=== PATIENT | male | born 1940 | race Caucasian/White ===

== ENCOUNTER 2018-02-22 18:04 | Inpatient (IN) | payer MEDICARE, BC ==
[~2018-02-22] VITALS: Ht 165.1 cm; Wt 58.2 kg
--- NOTE | ~2018-02-22 | OP ---
PATIENT NAME: JOSÉ ROBLEDO MEDICAL RECORD: [id number] :42 LOCATION:D.M2 D.2121 ADMISSION DATE:02/22/18 SURGEON: RICHARD PEREYRA MD DATE OF OPERATION: 02/25/2018 PROCEDURES: 1. PTCA stent LAD. 2. PTCA LAD diagonal. 3. Selective coronary angiography. INDICATION: Non-Q-wave myocardial infarction. PROCEDURE IN DETAIL: After informed consent was obtained and after detailed explanation of risks, benefits as well as alternative therapies, the patient elected to proceed with angiogram and angioplasty. The right femoral area is prepped and draped in normal sterile fashion. The right femoral artery was cannulated via modified Seldinger technique with placement of 6-Romansh sheath. All catheters exchanged through this sheath. FINDINGS: The left anterior descending has 95% stenosis, the diagonal does as well. The LAD was addressed with a 2.75 x 30 mm Real stent. We ballooned the diagonal with a 1.5 and 2.0 balloon. Result was 0% residual throughout. OVERALL IMPRESSION: Successful NURSE LIAISON stent of the LAD going from 95% initial stenosis to 0% residual stenosis. TRANSINT:[id number] Voice Confirmation ID: [id number] DOCUMENT ID: [id number] RICHARD PEREYRA MD at 1630 CC: [id number] DICTATION DATE: 02/25/18822 COMEDIAN: 02/25/18 1039 DIS IN 02/25/18 [id number] [place] [address]
--- NOTE | ~2018-02-22 | HEMODYNAMI ---
PATIENT:JOSÉ ROBLEDO MEDICAL RECORD: [id number] : 42 LOCATION:[address] ADMISSION DATE: 02/22/18 Generatedon:02/23/20189:09 Patient name: JOSÉ ROBLEDO Patient #: [id number] SSN: : 1940 Date of study: 02/23/2018 Page: Of Hemodynamic Procedure Report Patient Data Patient Demographics Procedure consent was obtained First Name: JOSÉ Gender: Male Last Name: MEENA : 1940 Patient #: [id number] Age: 77 year(s) Race: Unknown Additional ID: [id number] Contact details Address: [address] State: [place] City: [place] Zip code: [address] Past Medical History Allergies: No known allergies Admission Admission Data Admission Date: 02/22/2018 Admission Time: 19:18 Room #: 2121 Procedure Procedure Types Cath Procedure Diagnostic Procedure LHC LHC w/Coronaries PCI Procedure Coronary Stent Coronary Stent Initial Procedure Description Procedure Date Procedure Date: 02/23/2018 Procedure Start Time: 8:46 Procedure End Time: 9:06 Procedure Staff Name Function Marilia Walsh RT Monitor Ludivina Antonio RN Nurse Mariano Ross MD Performing Physician Tab Cloud RT Scrub Procedure Data Cath Procedure Fluoroscopy Diagnostic fluoroscopy Total fluoroscopy Time: 4.6 time: 4.6 min min Diagnostic fluoroscopy Total fluoroscopy dose: 365 dose: 365 mGy mGy Contrast Material Contrast Material Type Amount (ml) Isovue 300 87 Entry Location Entry Primary Successful Side Size Upsize Upsize Entry Closure Martinez ccessful Closure Location (Fr) 1 (Fr) 2 (Fr) Remarks Device Remarks Radial Right 6 Fr Mechanical artery Short Compression Estimated blood loss: 10 ml Diagnostic catheters Device Type Used For End Catheter Placement DIAGNOSTIC Vado 110cm 5 LV Angiography Fr catheter ([id number]) DIAGNOSTIC Vado 110cm 5 Left Coronary Fr catheter ([id number]) Angiography DIAGNOSTIC Vado 110cm 5 Right Coronary Fr catheter ([id number]) Angiography Procedure Complications No complications Procedure Medications Medication Administration Route Dosage Oxygen NC 2 l/min Lidocaine 2% added to field 20 Heparin Flush Bag added to field 2 bags (1000units/500ml NS) 0.9% NaCl I.V. 100 ml/hr Radial Cocktail I.A. 1 syringe (Verapomil 2mg/Nitro 400mcg/Heparin 1500units) Versed I.V. 1 mg Fentanyl I.V. 50 mcg Heparin Bolus I.V. 4000 units Versed I.V. 1 mg Fentanyl I.V. 50 mcg Plavix P.O. 75 mg Hemodynamics Rest Heart Rate: 60 (bpm) Snapshots Pre Cath Intra NCS Post Cath Vital Signs Time Heart Resp SPO2 etCO2 NIBP (mmHg) Rhythm Pain Sedation Rate (ipm) (%) (mmHg) Status Level (bpm) 8:36:41 47 15 100 31.5 155/73(120) NSR 0 (11) 10(A) , No pain 8:41:28 51 16 100 32.3 144/69(112) NSR 0 (11) 10(A) , No pain 8:46:39 47 15 100 17.2 131/65(93) NSR 0 (11) 10(A) , No pain 8:51:18 59 14 98 34.5 118/60(82) NSR 0 (11) 10(A) , No pain 8:55:58 54 16 97 0 103/48(70) NSR 0 (11) 9(A) , No pain 9:00:35 53 18 98 39.8 110/57(81) NSR 0 (11) 10(A) , No pain 9:05:34 51 16 30.8 Measuring NSR 0 (11) 10(A) , No pain 9:05:48 52 16 98 31.6 110/55(83) NSR 0 (11) 10(A) , No pain Medications Time Medication Route Dose Verified Delivered Reason Notes Effectiveness by by 8:35:12 Oxygen NC 2 l/min Mariano Florence used for Cody Antonio de icer finisher 8:35:18 Lidocaine 2% added 20ml Mariano Quintana for local to vial Cody Ross MD anesthetic field 8:35:29 Heparin Flush added 2 bags Mariano Quintana used for Bag to Cody Ross MD procedure (1000units/500ml field NS) 8:35:38 0.9% NaCl I.V. 100 Mariano Florence Per physician ml/hr Cody Antonio RN 8:48:11 Radial Cocktail I.A. 1 Mariano Quintana for (Verapomil syringe Cody Ross MD vasodilation 2mg/Nitro 400mcg/Hepari 8:48:25 Versed I.V. 1 mg Mariano Florence for sedation Cody Antonio RN 8:48:30 Fentanyl I.V. 50 mcg Mariano Florence for sedation Cody Antonio RN 8:52:45 Heparin Bolus I.V. 4000 Mariano Florence for verif ied units Cody Antonio RN anticoagulation with dr ross 8:55:03 Versed I.V. 1 mg Mariano Florence for sedation Cody Antonio RN 8:55:07 Fentanyl I.V. 50 mcg Mariano Florence for sedation Cody Antonio RN 9:03:23 Plavix P.O. 75 mg Mariano Florence for Cody Antonio RN antiplatelet therapy Procedure Log Time Note 8:19:12 Marilia Counts RT(R) sent for patient. Start room use. 8:19:13 Time tracking: Regular hours (M-F 7:00 - 5:00) 8:19:16 Plan of Care:Hemodynamics will remain stable., Cardiac rhythm will remain stable., Comfort level will be maintained., Respiratory function will remain adequate., Patient/ family verbilizes understanding of procedure., Procedure tolerated without complication., Recovers from procedure without complications.. 8:27:41 Patient received from Med II to CCL 1 Alert and oriented. Tansferred to table in Supine position. 8:27:42 Warm blankets applied, and eddie hugger turned on for patient comfort. 8:27:43 Correct patient and procedure confirmed by team. 8:27:44 Pre-op teaching completed and patient verbalized understanding. 8:27:44 Pre-procedure instructions explained to patient. 8:35:12 Oxygen 2 l/min NC was administered by Ludivina Antonio RN; used for procedure; 8:35:18 Lidocaine 2% 20ml vial added to field was administered by Mariano Ross MD; for local anesthetic; 8:35:29 Heparin Flush Bag (1000units/500ml NS) 2 bags added to field was administered by Mariano Ross MD; used for procedure; 8:35:38 0.9% NaCl 100 ml/hr I.V. was administered by Ludivina Antonio RN; Per physician; 8:35:41 Vital chart was started 8:39:08 Signed procedure consent form obtained from patient. 8:39:09 ECG and BP/O2 sat monitors applied to patient. 8:39:15 Rhythm: sinus bradycardia 8:39:17 Full Disclosure recording started 8:40:19 H&P Date Dictated: 02/23/2018 New H&P dictated by physician.. 8:40:22 Family in patients room. 8:40:24 Patient NPO since Midnight. 8:40:31 Patient allergic to No known allergies 8:40:33 Is the patient allergic to Iodine/contrast media? No. 8:40:35 Is patient on blood thinner?Yes 8:40:38 ACC The patient was administered the following blood thiners within the last 24 hours: ACCPlavix 8:40:40 Patient diabetic? No. 8:41:07 Previous problem with sedation/anesthesia? No ? 8:41:08 Snore? Yes 8:41:09 Sleep apnea? No 8:41:10 Deviated septum? No 8:41:11 Opens mouth fully? Yes 8:41:12 Sticks out tongue? Yes 8:41:14 Airway obstruction? No ? 8:41:19 Dentures? Yes IN TIGHT 8:41:23 Pre procedure: right dorsailis pedis pulse 2+ Normal; easily identifiable; not easily obliterated 8:41:25 Modified Mckay's test Ulnar < 7 seconds 8:41:27 Patient pain scale 0/10 ?. 8:41:36 IV patent on arrival in right forearm with 0.9% NaCl at O. 8:41:39 Lab results completed and on chart. 8:41:43 Right Radial & Right Groin area was prepped with chlora-prep and draped in sterile fashion 8:41:44 Sharps counted by scrub and verified by R.N. 8:41:44 Alarms reviewed by R. N. 8:41:48 Use device set Radial Dx or PCI 8:41:49 Medline Cath Pack ([id number]) opened to sterile field. 8:41:49 ACIST Syringe (79945) opened to sterile field. 8:41:50 DIAGNOSTIC WIRE .035 260cm J wire (167714) opened to sterile field. 8:41:50 Bag Decanter (2001S) opened to sterile field. 8:41:51 ACIST Manifold (03260) opened to sterile field. 8:41:51 ACIST Hand Control (17613) opened to sterile field. 8:41:52 MBrace Wrist Support ([id number]) opened to sterile field. 8:41:52 Tegaderm 4 x 4 (1626W) opened to sterile field. 8:41:54 SHEATH 6Fr Prelude Radial ([id number]) opened to sterile field. 8:43:39 Physician paged 8:43:45 Zero performed for pressure channel P1 8:43:49 Final Timeout: patient, procedure, and site verified with staff and physician. All members of the team are in agreement. 8:43:53 Right Radial site verified by team. 8:43:56 Physical assessment completed. ASA score P 2 - A patient with mild systemic disease as per Mariano Ross MD. 8:43:59 Sedation plan: IV Moderate Sedation Medication:Versed, Fentanyl 8:44:06 Baseline sample Acquired. 8:46:07 Procedure started. 8:46:13 Local anesthetic to right radial artery with Lidocaine 2% by Mariano Ross MD.INITIAL ACCESS ONLY 8:47:25 A 6 Fr Short sheath was inserted into the Right Radial artery 8:48:11 Radial Cocktail (Verapomil 2mg/Nitro 400mcg/Heparin 1500units) 1 syringe I.A. was administered by Mariano Ross MD; for vasodilation; 8:48:25 Versed 1 mg I.V. was administered by Ludivina Antonio RN; for sedation; 8:48:30 Fentanyl 50 mcg I.V. was administered by Ludivina Antonio RN; for sedation; 8:49:15 A DIAGNOSTIC Vado 110cm 5 Fr catheter (484475) was advanced over the wire and used for LV Angiography. 8:49:58 LV gram done using CHEN 8:49:59 LV hemodynamics recorded. 8:50:01 Injector settings: Ml/sec: 5, Volume: 15, 8:50:25 A DIAGNOSTIC Vado 110cm 5 Fr catheter (552307) was advanced over the wire and used for Left Coronary Angiography. 8:51:19 A DIAGNOSTIC Vado 110cm 5 Fr catheter (420628) was advanced over the wire and used for Right Coronary Angiography. 8:51:37 Catheter removed. 8:51:42 Use device set CODY PCI 8:51:45 INFLATOR Merit Candiek (DE2195) opened to sterile field. 8:51:48 CHOICE PT Extra Support 182cm wire ([id number]) opened to sterile field. 8:52:45 Heparin Bolus 4000 units I.V. was administered by Ludivina Antonio RN; for anticoagulation; verified with dr ross 8:53:25 GUIDE 6FR AR 1.0 catheter ([id number]) opened to sterile field. 8:53:37 6 Fr AR 1.0 guide catheter was inserted over the wire 8:54:56 CHOICE PT ES wire advanced. 8:55:03 Versed 1 mg I.V. was administered by Ludivina Antonio RN; for sedation; 8:55:06 Inflate balloon Inflation number: 1 A EUPHORA 3.0 x 20 Balloon ([id number]) was prepped and advanced across the Prox RCA, then inflated to 13 INGRID for 0:07 (min:sec). 8:55:07 Fentanyl 50 mcg I.V. was administered by Ludivina Antonio RN; for sedation; 8:55:25 Balloon removed over the wire. 8:57:04 Place stent Inflation Number: 2 A ANGEL RX 3.5 x 38 stent ([id number]) was prepped and advanced across the Prox RCA. The stent was deployed at 11 INGRID for 0:07 (min:sec). 8:57:40 Stent catheter was removed intact over wire. 8:59:59 Place stent Inflation Number: 3 A ANGEL RX 3.0 x 18 stent ([id number]) was prepped and advanced across the Prox RCA. The stent was deployed at 13 INGRID for 0:10 (min:sec). 9:00:02 Stent catheter was removed intact over wire. 9:00:03 Wire removed. 9:00:04 Guide catheter removed. 9:00:12 Sheath removed intact; hemostasis achieved with Mechanical Compression to the Right Radial artery. 9:00:14 Procedure ended.(Physican Out) 9:00:30 Fluoroscopy time 04.60 minutes. 9:00:34 Fluoroscopy dose: 365 mGy 9:00:34 Flurop Dose total: 365 9:00:43 Contrast amount:Isovue 300 87ml. 9:00:44 Sharps counted by scrub and verified by R.N. 9:00:47 TR band inflated with 10cc of air. 9:00:48 Insertion/operative site no bleeding no hematoma. 9:00:54 Post right radial artery:stable, clean and dry 9:00:56 Post Procedure Pulses reassessed and unchanged 9:00:58 Post-procedure physical assessment completed. ASA score P 2 - A patient with mild systemic disease as per Mariano Ross MD. 9:01:01 Post procedure rhythm: unchanged. 9:01:39 Estimated blood loss: 10 ml 9:01:41 Post procedure instruction explained to patient.Patient verbalizes understanding. 9:01:44 Patient needs reinforcement of post procedure teaching. 9:02:07 Procedure type changed to Cath procedure, Diagnostic procedure, LHC, LHC w/Coronaries, PCI procedure, Coronary Stent, Coronary Stent Initial 9:02:13 Procedure Complication : No complications 9:02:16 See physician's report for complete and final results. 9:02:28 TR BAND Standard ([id number]) opened to sterile field. 9:03:23 Plavix 75 mg P.O. was administered by Ludivina Antonio RN; for antiplatelet therapy; 9:03:37 Procedure and supply charges have been captured, reviewed, submitted and are correct. 9:05:54 Vital chart was stopped 9:05:56 Report given to PCU. 9:06:00 Patient transfered to PCU with Bed. 9:06:08 Full Disclosure recording stopped 9:06:08 Procedure ended. 9:06:11 End room use (Document Last) Intervention Summary Intervention Notes Time ActionType Lesion and Equipment Used Action# Pressure Duration Attributes 8:55:06 Inflate Prox RCA EUPHORA 3.0 x 1 13 00:07 balloon 20 Balloon ([id number]) 8:57:04 Place stent Prox RCA ANGEL RX 3.5 x 2 11 00:07 38 stent ([id number]) 8:59:59 Place stent Prox RCA ANGEL RX 3.0 x 3 13 00:10 18 stent ([id number]) Device Usage Item Name Manufacture Quantity Catalog Number Hospital Part Current Minimal Lot# / Charge Number Stock Stock Serial# Code ACIST Syringe Acist 1 65173 254008 333173 108691 20 (53920) Medical Systems Inc Medline Cath Cardinal 1 [id number] 024500 32126 449235 5 Pack Health ([id number]) Bag Decanter Microtek 1 2001S 621962 45896 857175 5 (2001S) Medical Inc. DIAGNOSTIC WIRE St Evangelista 1 811273 517401 330780 737250 30 .035 260cm J wire (757080) ACIST Hand Acist 1 46748 109771 140538 049922 5 Control (58441) [employer] Systems Inc ACIST Manifold Acist 1 94884 347620 952144 191360 5 (35910) Medical Systems Inc Tegaderm 4 x 4 3M 1 1626W 279595 949164 666586 5 (1626W) MBrace Wrist Advanced 1 140-0250-00 359612 05573 463970 5 Support Vascular ([id number]) Dynamics SHEATH 6Fr Merit 1 [id number] 400886 365647 874884 5 Prelude Radial Medical ([id number]) DIAGNOSTIC Terumo 1 40-1933 254044 459410 446354 5 Vado 110cm 5 Fr catheter (689740) INFLATOR Merit Merit 1 QC9530 824038 739567 766682 15 [employer] (AI0305) CHOICE PT Extra Lenox 1 [id number] 474464 985164 536922 5 Support 182cm Scientific wire ([id number]) GUIDE 6FR AR Medtronic 1 [id number] 400885 95921 573312 1 1.0 catheter ([id number]) EUPHORA 3.0 x Medtronic 1 [id number] 529548 876988 036273 5 [id number] 20 Balloon (TXV0074N) ANGEL RX 3.5 x Medtronic 1 [id number] 326415 5299490 557176 5 [id number] 38 stent ([id number]) ANGEL RX 3.0 x Medtronic 1 [id number] 917567 3845669 434565 5 [id number] 18 stent ([id number]) TR BAND Terumo 1 [id number] 722037 725930 877494 40 Standard ([id number]) Signature Audit [place] Stage Time Signature Unsigned Intra-Procedure 02/23/2018 Marilia Capellan Counts 9:06:22 AM Counts RT(R) RT(R) 02/23/2018 9:08:04 AM Intra-Procedure 02/23/2018 Marilia 9:09:09 AM Counts RT(R) Signatures Monitor : Marilia Signature : Counts RT Date : Time : [place] [address] [facility]
--- NOTE | ~2018-02-22 | HP ---
PATIENT: JOSÉ ROBLEDO MEDICAL RECORD: [id number] ACCOUNT: [id number] LOCATION:[address] : 41 ADMISSION DATE: 02/22/18 HISTORY AND PHYSICAL EXAMINATION DIAGNOSES: 1. Non-Q-wave myocardial infarction. 2. Coronary artery disease. 3. Hypertension. 4. Prostate cancer. HISTORY OF PRESENT ILLNESS: This is a gentleman who has no previous cardiac history began having chest pain yesterday, presented to [facility], was found to have a non-Q-wave myocardial infarction. PHYSICAL EXAMINATION: GENERAL APPEARANCE: Well-nourished, well-developed, appears stated age. Level of distress, comfortable. PSYCHIATRIC: Mental status, alert, normal affect. Orientation, oriented to time, place and person. EYES: Lids and conjunctiva, noninjected. No discharge, no pallor. ENT: Lips, teeth, gums, normal dentition. Oropharynx, no cyanosis, no pallor. NECK: Carotid arteries, bilateral normal upstroke, no bruits, no thrills. JUGULAR VEINS: No jugular venous pressure or distention. CERVICAL LYMPH NODES: Nontender, nonenlarged. THYROID: Not enlarged. Nontender. No nodules. LUNGS: Respiratory effort, unlabored. CHEST: Normal curvature. No thoracic deformity. No chest wall tenderness. Percussion, resonant. Auscultation, clear. No wheezes, no rales, no rhonchi. CARDIOVASCULAR: Precordial exam, nondisplaced. No heaves or pericardial thrills. Rate and rhythm, regular. Heart sounds, normal S1, normal S2. No S3, no gallop, no rub. Systolic murmur, not heard. Diastolic murmur, not heard. EXTREMITIES: No cyanosis, no edema. Peripheral pulses, full and equal in all extremities, except as noted. No bruits appreciated. ABDOMEN: Soft, nondistended. Normal aorta. No bruit. Nontender. No masses. Liver, nontender, no hepatomegaly. Spleen, nontender, no splenomegaly. MUSCULOSKELETAL: No joint tenderness. No joint swelling. No erythema. NEUROLOGICAL: Normal gait, normal strength, normal tone. SKIN: Warm and dry. REVIEW OF SYSTEMS: The patient reports easy bruising but reports no swollen glands. The patient reports no fever, no night sweats, no significant weight gain, no significant weight loss. No significant exercise tolerance. The patient reports no dry eyes, no irritation, no vision change. Patient reports no difficulty hearing and no ear pain. Patient reports no frequent nose bleeds or nose and sinus problems. Patient reports on arm pain on exertion. No shortness of breath while lying down. No history of heart murmur. Patient reports no cough, no wheezing or coughing up blood. Patient reports no abdominal pain, no vomiting. Normal appetite. No diarrhea and not vomiting blood. No nausea and no constipation. Patient reports no incontinence. No difficulty urinating. No hematuria. No increased frequency. Patient reports no muscle aches. No weakness, no arthralgias, no back pain. No swelling of the extremities. Patient reports no abnormal mole, no jaundice, no rashes. Reports no loss of consciousness. No weakness and no numbness. No seizures, dizziness, or headaches. The patient reports no depression, no sleep disturbance, feeling HISTORY AND PHYSICAL [id number] FRACHISEUR,JOSÉ safe in a relationship and no alcohol abuse. Patient reports on fatigue. Reports no runny nose or sinus pressure. No itching, no hives, and no frequent sneezing. OVERALL IMPRESSION: Non-Q-wave myocardial infarction, grossly abnormal ECG with T-wave inversions anteriorly. We will proceed with coronary angiography. Further care depends upon findings of the angiography. TRANSINT:[id number] Voice Confirmation ID: [id number] DOCUMENT ID: [id number] RICHARD PEREYRA MD at 0820 CC: [id number] DICTATION DATE: 02/23/18 0749 DRAWER UPFITTER: 02/23/18 [address] [place] [address]
--- NOTE | ~2018-02-22 | OP ---
PATIENT NAME: JOSÉ ROBLEDO MEDICAL RECORD: [id number] :42 LOCATION:D.M2 D.2121 ADMISSION DATE:02/22/18 SURGEON: RICHARD PEREYRA MD DATE OF OPERATION: 02/23/2018 PROCEDURES: 1. PTCA stent RCA. 2. Left heart catheterization. 3. Selective coronary angiography. 4. Left ventriculogram. INDICATION: Angina, coronary artery disease, non-Q-wave myocardial infarction. DESCRIPTION OF PROCEDURE: After informed consent was obtained and after a detailed description of risks, benefits as well as alternative therapies, the patient elected to proceed with angiogram and angioplasty. The right radial area was prepped and draped in normal sterile fashion. Right radial artery was cannulated via modified Seldinger technique with placement of 6-Libyan sheath. All catheters exchanged through this sheath. FINDINGS: The left ventriculogram was performed in standard 30-degree CHEN view, reveals preserved cardiac wall motion, ejection fraction 50%. SELECTIVE CORONARY ANGIOGRAPHY: 1. Left main is with no significant angiographic disease. 2. Left anterior descending has 95% stenosis proximally. This entails the LAD and the LAD diagonal. 3. Left circumflex has 90% stenosis in the mid vessel. 4. Right coronary artery has 99% stenosis throughout the mid vessel. PTCA STENT OF THE RIGHT CORONARY ARTERY: Stents used were 3.5 x 38 and 3.0 x 18 both Anderson stents. Result was 0% residual stenosis. OVERALL IMPRESSION: Successful PTCA stent of the RCA going from 99% initial stenosis to 0% residual. PLAN: For PTCA stent of the LAD and circumflex in the near future. TRANSINT:[id number] Voice Confirmation ID: [id number] DOCUMENT ID: [id number] RICHARD PEREYRA MD at 1630 CC: [id number] DICTATION DATE: 02/23/18 09 FLOOR COVERER APPRENTICE: 02/23/18 1155 DIS IN 02/25/18 [facility] [address] [id number]
--- NOTE | ~2018-02-22 | HEMODYNAMI ---
PATIENT:JOSÉ ROBLEDO MEDICAL RECORD: [id number] : 42 LOCATION:[facility] D.2121 ADMISSION DATE: 02/22/18 Generatedon:02/25/20188:23 Patient name: JOSÉ ROBLEDO Patient #: [id number] SSN: : 1940 Date of study: 02/25/2018 Page: Of Hemodynamic Procedure Report Patient Data Patient Demographics Procedure consent was obtained First Name: JOSÉ Gender: Male Last Name: MEENA : 1940 Patient #: [id number] Age: 77 year(s) Race: Unknown Additional ID: [id number] Contact details Address: [address] State: [place] City: [place] Zip code: [address] Past Medical History Allergies: No known allergies Admission Admission Data Admission Date: 02/22/2018 Admission Time: 19:18 Room #: 2121 Procedure Procedure Types Cath Procedure PCI Procedure Coronary Stent Coronary Stent Initial PTCA PTCA Additional Procedure Description Procedure Date Procedure Date: 02/25/2018 Procedure Start Time: 8:00 Procedure End Time: 8:23 Procedure Staff Name Function Mariano Ross MD Performing Physician Dexter Coleman RT Monitor Shilpi Blank RT Scrub Ludivina Antonio RN Nurse Procedure Data Cath Procedure Fluoroscopy Diagnostic fluoroscopy Total fluoroscopy Time: 7.7 time: 7.7 min min Diagnostic fluoroscopy Total fluoroscopy dose: 298 dose: 298 mGy mGy Contrast Material Contrast Material Type Amount (ml) Isovue 300 77 Entry Location Entry Primary Successful Side Size Upsize Upsize Entry Closure Succes sful Closure Location (Fr) 1 (Fr) 2 (Fr) Remarks Device Remarks Femoral Right 6 Fr Exoseal artery Short Estimated blood loss: 10 ml Procedure Complications No complications Procedure Medications Medication Administration Route Dosage Oxygen NC 2 l/min Lidocaine 2% added to field 20 Heparin Flush Bag added to field 2 bags (1000units/500ml NS) 0.9% NaCl I.V. 100 ml/hr Versed I.V. 1 mg Fentanyl I.V. 50 mcg Heparin Bolus I.V. 4000 units Versed I.V. 1 mg Fentanyl I.V. 50 mcg Radial Cocktail added to field 1 syringe (Verapomil 2mg/Nitro 400mcg/Heparin 1500units) Versed I.V. 1 mg Hemodynamics Rest Heart Rate: 51 (bpm) Pressure Samples Time Site Value (mmHg) Purpose Heart Use Rate(bpm) 8:08 AO 97/76(87) Snapshot 69 Snapshots Pre Cath Intra NCS Post Cath Vital Signs Time Heart Resp SPO2 etCO2 NIBP (mmHg) Rhythm Pain Sedation Rate (ipm) (%) (mmHg) Status Level (bpm) 7:44:29 47 23 98 0 149/70(111) NSR 0 (11) 10(A) , No pain 7:50:11 46 18 99 21.8 135/66(99) NSR 0 (11) 10(A) , No pain 7:55:41 42 16 95 0 116/62(92) NSR 0 (11) 10(A) , No pain 8:00:58 45 15 96 0 114/51(87) NSR 0 (11) 10(A) , No pain 8:05:35 48 17 98 0 116/59(86) NSR 0 (11) 9(A) , No pain 8:10:34 68 25 99 33.1 Measuring NSR 0 (11) 9(A) , No pain 8:14:01 54 13 96 0 126/64(95) NSR 0 (11) 9(A) , No pain 8:22:19 48 16 97 25.6 111/56(84) NSR 0 (11) 10(A) , No pain Medications Time Medication Route Dose Verified Delivered Reason Notes Effectiveness by by 7:56:15 Oxygen NC 2 l/min Mariano Bedoyaie used for Cody Antonio RN procedure 7:56:23 Lidocaine 2% added 20ml Mariano Quintana for local to vial Cody Ross MD anesthetic field 7:56:31 Heparin Flush added 2 bags Mariano Florence used for Bag to Cody Antonio RN procedure (1000units/500ml field NS) 7:56:40 0.9% NaCl I.V. 100 Mariano Florence Per physician ml/hr Cody Antonio RN 7:56:57 Radial Cocktail added 1 Mariano Florence for waste d. (Verapomil to syringe Cody Antonio RN vasodilation 2mg/Nitro field 400mcg/Heparin 1500units) 7:59:10 Versed I.V. 1 mg Marianoholden Bedoyaie for sedation Cody Antonio RN 7:59:15 Fentanyl I.V. 50 mcg Mariano Bedoyaie for sedation Cody Antonio RN 8:02:04 Heparin Bolus I.V. 4000 Mariano Florence for verif ied units Cody Antonio RN anticoagulation with dr ross 8:04:50 Versed I.V. 1 mg Mariano Bedoyaie for sedation Cody Antonio RN 8:04:53 Fentanyl I.V. 50 mcg Mariano Florence for sedation Cody Antonio RN 8:13:34 Versed I.V. 1 mg Mariano Buffie for sedation Cody Antonio RN Procedure Log Time Note 7:15:01 Shilpi Blank RT(R) sent for patient. Start room use. 7:18:37 Time tracking: Regular hours (M-F 7:00 - 5:00) 7:18:41 Plan of Care:Hemodynamics will remain stable., Cardiac rhythm will remain stable., Comfort level will be maintained., Respiratory function will remain adequate., Patient/ family verbilizes understanding of procedure., Procedure tolerated without complication., Recovers from procedure without complications.. 7:18:43 Signed procedure consent form obtained from patient. 7:22:09 H&P Date Dictated: 02/22/2018 Within 30 days and on chart.. 7:34:35 Patient received from PCU to CCL 1 Alert and oriented. Tansferred to table in Supine position. 7:34:36 Warm blankets applied, and eddie hugger turned on for patient comfort. 7:34:37 Correct patient and procedure confirmed by team. 7:34:37 ECG and BP/O2 sat monitors applied to patient. 7:34:38 Full Disclosure recording started 7:43:28 Vital chart was started 7:46:19 Baseline sample Acquired. 7:46:29 Rhythm: sinus bradycardia 7:46:33 Pre-procedure instructions explained to patient. 7:46:33 Pre-op teaching completed and patient verbalized understanding. 7:46:35 Family in patients room. 7:46:36 Patient NPO since Midnight. 7:46:45 Is the patient allergic to Iodine/contrast media? No. 7:46:55 Is patient on blood thinner?Yes 7:46:58 ACC The patient was administered the following blood thiners within the last 24 hours: ACCPlavix 7:46:59 Patient diabetic? No. 7:47:02 Previous problem with sedation/anesthesia? No ? 7:47:03 Snore? Yes 7:47:04 Sleep apnea? No 7:47:06 Deviated septum? No 7:47:06 Opens mouth fully? Yes 7:47:07 Sticks out tongue? Yes 7:47:15 Airway obstruction? No ? 7:47:19 Dentures? Yes IN 7:48:00 Pre procedure: right dorsailis pedis pulse 1+ Palpable, but thready & weak; easily obliterated 7:48:04 Modified Mckay's test Ulnar < 7 seconds 7:48:06 Patient pain scale 0/10 ?. 7:48:10 IV patent on arrival in right antecubital with 0.9% NaCl at O. 7:48:13 Lab results completed and on chart. 7:48:17 Right Radial & Right Groin area was prepped with chlora-prep and draped in sterile fashion 7:48:18 Alarms reviewed by RSelin N. 7:48:18 Sharps counted by scrub and verified by R.N. 7:48:21 Physician paged 7:48:24 Use device set Radial Dx or PCI 7:48:29 Use device set TAUTH PCI 7:48:34 Tegaderm 4 x 4 (1626W) opened to sterile field. 7:48:35 ACIST Hand Control (99779) opened to sterile field. 7:48:36 ACIST Manifold (77620) opened to sterile field. 7:48:38 ACIST Syringe (41448) opened to sterile field. 7:48:39 Medline Cath Pack ([id number]) opened to sterile field. 7:48:39 Bag Decanter () opened to sterile field. 7:48:39 DIAGNOSTIC WIRE .035 260cm J wire (988191) opened to sterile field. 7:48:40 MBrace Wrist Support ([id number]) opened to sterile field. 7:48:45 INFLATOR Merit BasixCompak (ZT0041) opened to sterile field. 7:48:48 CHOICE PT Extra Support 182cm wire ([id number]) opened to sterile field. 7:51:34 IV Extension Set opened to sterile field. 7:56:15 Oxygen 2 l/min NC was administered by Ludivina Antonio RN; used for procedure; 7:56:23 Lidocaine 2% 20ml vial added to field was administered by Mariano Ross MD; for local anesthetic; 7:56:31 Heparin Flush Bag (1000units/500ml NS) 2 bags added to field was administered by Ludivina Antonio RN; used for procedure; 7:56:40 0.9% NaCl 100 ml/hr I.V. was administered by Ludivina Antonio RN; Per physician; 7:56:57 Radial Cocktail (Verapomil 2mg/Nitro 400mcg/Heparin 1500units) 1 syringe added to field was administered by Ludivina Antonio RN; for vasodilation; wasted. 7:57:58 --------ALL STOP TIME OUT------ 7:57:58 Final Timeout: patient, procedure, and site verified with staff and physician. All members of the team are in agreement. 7:58:04 Right Radial & Right Groin site verified by team. 7:58:07 Physical assessment completed. ASA score P 2 - A patient with mild systemic disease as per Mariano Ross MD. 7:58:15 Sedation plan: IV Moderate Sedation Medication:Versed, Fentanyl 7:58:24 SHEATH Prelude 6Fr 0.035 (CVH-4U-02-035) opened to sterile field. 7:59:09 Zero performed for pressure channel P1 7:59:10 Versed 1 mg I.V. was administered by Ludivina Antonio RN; for sedation; 7:59:15 Fentanyl 50 mcg I.V. was administered by Ludivina Antonio RN; for sedation; 7:59:41 GUIDE 6FR XBLAD 3.5 catheter ([id number]) opened to sterile field. 8:00:07 Procedure started. 8:00:11 Local anesthetic to right femoral artery with Lidocaine 2% by Mariano Ross MD.INITIAL ACCESS ONLY 8:00:34 A 6 Fr Short sheath was inserted into the Right Femoral artery 8:00:50 6 Fr XBLAD 3.5 guide catheter was inserted over the wire 8:00:58 Guide Catheter removed. unable to cannulate vessel. 8:01:01 GUIDE 6FR XBLAD 4.0 catheter ([id number]) opened to sterile field. 8:01:10 6 Fr XBLAD 4 guide catheter was inserted over the wire 8:02:04 Heparin Bolus 4000 units I.V. was administered by Ludivina Antonio RN; for anticoagulation; verified with dr ross 8:02:12 Choice PT XS wire advanced. 8:04:06 Wire advanced across lesion. 8:04:50 Versed 1 mg I.V. was administered by Ludivina Antonio RN; for sedation; 8:04:53 Fentanyl 50 mcg I.V. was administered by Ludivina Antonio RN; for sedation; 8:05:53 Place stent Inflation Number: 1 A ANGEL RX 2.75 x 30 stent ([id number]) was prepped and advanced across the Prox LAD. The stent was deployed at 17 INGRID for 0:10 (min:sec). 8:07:42 Stent catheter was removed intact over wire. 8:08:54 Wire redirected to DIAG. 8:10:51 Inflate balloon Inflation number: 1 A EUPHORA 1.5 x 10 Balloon ([id number]) was prepped and advanced across the 1st Diag, then inflated to 17 INGRID for 0:10 (min:sec). 8:11:07 Multiple inflations made at 17 Atms. 8:11:40 Balloon removed over the wire. 8:13:04 Inflate balloon Inflation number: 2 A EUPHORA 2.0 x 10 Balloon ([id number]) was prepped and advanced across the 1st Diag, then inflated to 13 INGRID for 0:30 (min:sec). 8:13:34 Versed 1 mg I.V. was administered by Ludivina Antonio RN; for sedation; 8:14:10 Mutiple inflations made at 10 Atms. 8:14:12 Balloon removed over the wire. 8:14:13 Wire removed. 8:14:14 Guide catheter removed. 8:14:22 EXOSEAL 6Fr (EX600) opened to sterile field. 8:14:53 Sheath removed intact; hemostasis achieved with Exoseal to the Right Femoral artery. 8:14:55 Procedure ended.(Physican Out) 8:15:11 Fluoroscopy time 07.70 minutes. 8:15:15 Fluoroscopy dose: 298 mGy 8:15:15 Flurop Dose total: 298 8:15:18 Contrast amount:Isovue 300 77ml. 8:15:20 Sharps counted by scrub and verified by R.N. 8:15:22 Insertion/operative site no bleeding no hematoma. 8:15:47 Post-op/insertion site Right Femoral artery dressed using a 4 x 4 and Tegaderm. 8:15:49 Post Procedure Pulses reassessed and unchanged 8:15:52 Post-procedure physical assessment completed. ASA score P 2 - A patient with mild systemic disease as per Mariano Ross MD. 8:15:54 Post procedure rhythm: unchanged. 8:15:56 Estimated blood loss: 10 ml 8:15:57 Post procedure instruction explained to patient.Patient verbalizes understanding. 8:15:58 Patient needs reinforcement of post procedure teaching. 8:16:09 Procedure type changed to Cath procedure, PCI procedure, Coronary Stent, Coronary Stent Initial, PTCA, PTCA Additional 8:16:11 Procedure and supply charges have been captured, reviewed, submitted and are correct. 8:16:14 Procedure Complication : No complications 8:17:21 Vital chart was stopped 8:17:22 See physician's report for complete and final results. 8:17:24 Report given to PCU. 8:17:52 Patient transfered to PCU with Bed. 8:23:01 Procedure ended. 8:23:01 Full Disclosure recording stopped 8:23:05 End room use (Document Last) Intervention Summary Intervention Notes Time ActionType Lesion and Equipment Used Action# Pressure Duration Attributes 8:05:53 Place stent Prox LAD ANGEL RX 2.75 x 1 17 00:10 30 stent ([id number]) 8:10:51 Inflate 1st Diag EUPHORA 1.5 x 1 17 00:10 balloon 10 Balloon ([id number]) 8:13:04 Inflate 1st Diag EUPHORA 2.0 x 2 13 00:30 balloon 10 Balloon ([id number]) Device Usage Item Name Manufacture Quantity Catalog Number Hospital Part Current Minimal Lot# / Charge Number Stock Stock Serial# Code Tegaderm 4 x 4 3M 1 1626W [id number] [id number] 533140 5 (1626W) ACIST Hand Acist 1 49976 049911 748222 033576 5 Control (83720) Medical Systems Inc ACIST Manifold Acist 1 52774 669642 545693 305566 5 (91309) [employer] Inc ACIST Syringe Acist 1 89072 224234 923529 888727 20 (20685) Medical Systems Inc Medline Cath Cardinal 1 [id number] 159289 55882 407435 5 Pack Health (ZHHH86917) Bag Decanter Microtek 1 2001S 629586 57620 537565 5 (2001S) Medical Inc. DIAGNOSTIC WIRE St Evangelista 1 427215 149896 241748 906448 30 .035 260cm J wire (775463) MBrace Wrist Advanced 1 140-0250-00 577916 92615 779142 5 Support Vascular (138100681) Dynamics INFLATOR Merit Merit 1 KD0111 197107 490051 848707 15 BasBLAZER & FLIP FLOPS Medical (WN0644) CHOICE PT Extra [place] 1 [id number] 983203 640966 943867 5 Support 182cm Scientific wire ([id number]) IV Extension Hospira 1 76922-17 012977 57755 251220 5 Set SHEATH Prelude Merit 1 OLM-0S-04-35 087567 7028985 455911 5 6Fr 0.035 Medical (XHL-0L-50-035) GUIDE 6FR XBLAD Cardinal 1 [id number] 016450 883437 822699 10 3.5 catheter Health (65278779) GUIDE 6FR XBLAD Cardinal 1 [id number] 074983 202253 181835 3 4.0 catheter Health (50453402) ANGEL RX 2.75 x Medtronic 1 [id number] 955924 6674440 444788 5 [id number] 30 stent ([id number]) EUPHORA 1.5 x Medtronic 1 [id number] 832410 404510 305531 5 [id number] 10 Balloon ([id number]) EUPHORA 2.0 x Medtronic 1 [id number] 706692 244533 319673 5 [id number] 10 Balloon ([id number]) EXOSEAL 6Fr Cardinal 1 EX600 814660 017484 768255 10 (EX600) Health Signature Audit [place] Stage Time Signature Unsigned Intra-Procedure 02/25/2018 Dexter Coleman 8:23:32 AM RT(R) Signatures Monitor : Dexter Coleman RT Signature : Date : Time : [id number] [place] [address]
--- NOTE | ~2018-02-22 | DS ---
PATIENT:JOSÉ ROBLEDO :42 MEDICAL RECORD: [id number] DISCHARGE SUMMARY ADMISSION DATE: 02/22/18 DISCHARGE DATE: 02/25/18 DIAGNOSES: 1. Non-Q-wave myocardial infarction. 2. Coronary artery disease. 3. Percutaneous transluminal coronary angioplasty stent right coronary artery and left anterior descending this admission. HOSPITAL COURSE: Mr. Robledo presents with a non-Q-wave myocardial infarction, found to have severe 3-vessel coronary artery disease, underwent successful PTCA stent of the LAD and right coronary artery. He will be brought back for PTCA stent of the circumflex in the future. He was discharged home with the addition of aspirin, Plavix, Pravachol to his medical regimen. Beta venancio was not undertaken secondary to bradycardia. TRANSINT:[id number] Voice Confirmation ID: [id number] DOCUMENT ID: [id number] RICHARD PEREYRA MD at 1630 CC: [id number] DICTATION DATE: 02/25/18821 INCLINED RAILWAY OPERATOR: 02/25/18 1258 DIS IN 02/25/18 [facility] [address] [place] [address]
[2018-02-22] MEDS ORDERED: PENTASA500 MG PO (19:51)
[2018-02-22] MEDS ORDERED: FLOMAX0.4 MG PO (19:52)
[2018-02-22 20:21] VITALS: BP 149/61; Ht 165.1 cm; Wt 58.2 kg
[2018-02-22 21:09] VITALS: BP 149/61
[2018-02-23 01:02] VITALS: BP 127/44
[2018-02-23 05:31] VITALS: BP 414/79
[2018-02-23 08:36] VITALS: BP 127/63
[2018-02-23 11:34] VITALS: BP 97/51
[2018-02-23 15:42] VITALS: BP 112/66
[2018-02-23 21:15] VITALS: BP 137/61
[2018-02-24 01:05] VITALS: BP 118/50
[2018-02-24 05:07] VITALS: BP 120/43
[2018-02-24 07:54] VITALS: BP 144/59
[2018-02-24 13:46] VITALS: BP 104/58
[2018-02-24 15:29] VITALS: BP 120/73
[2018-02-24 21:33] VITALS: BP 136/62
[2018-02-25 01:06] VITALS: BP 125/57
[2018-02-25 06:12] VITALS: BP 120/67
[2018-02-25] MEDS ORDERED: PLAVIX75 MG PO (12:22)
[2018-02-25] MEDS ORDERED: PRAVACHOL40 MG PO (12:23)
[2018-02-25] MEDS ORDERED: ASPIRIN81 MG PO (12:23)
== END 2018-02-25 13:30 | disposition home or self-care (01) | DRG 247 ==
LOC: D.M2 18:04
PROVIDERS: Internal Medicine Interventional Cardiology
PROC: 4A023N7 Measurement of Cardiac Sampling and Pressure, Left Heart, Percutaneous Approach (ICD-10-PCS; 2018-02-23)
PROC: B2111ZZ Fluoroscopy of Multiple Coronary Arteries using Low Osmolar Contrast (ICD-10-PCS; 2018-02-23)
PROC: B2151ZZ Fluoroscopy of Left Heart using Low Osmolar Contrast (ICD-10-PCS; 2018-02-23)
PROC: 027035Z Dilation of Coronary Artery, One Artery with Two Drug-eluting Intraluminal Devices, Percutaneous Approach (ICD-10-PCS; principal; 2018-02-23 08:19)
PROC: 027034Z Dilation of Coronary Artery, One Artery with Drug-eluting Intraluminal Device, Percutaneous Approach (ICD-10-PCS; 2018-02-25)
PROC: 02703ZZ Dilation of Coronary Artery, One Artery, Percutaneous Approach (ICD-10-PCS; 2018-02-25)
DX: I21.4 Non-ST elevation (NSTEMI) myocardial infarction (principal); I25.119 Atherosclerotic heart disease of native coronary artery with unspecified angina pectoris; I10 Essential (primary) hypertension

== ENCOUNTER 2018-03-04 09:11 | Outpatient (CLI) | payer MEDICARE, BC ==
[~2018-03-04] VITALS: Ht 165.1 cm; Wt 58.2 kg
--- NOTE | ~2018-03-04 | OP ---
PATIENT NAME: JOSÉ ROBLEDO MEDICAL RECORD: [id number] :42 LOCATION:D.CAT ADMISSION DATE: SURGEON: RICHADR PEREYRA MD DATE OF OPERATION: 03/04/2018 PROCEDURES: 1. PTCA stent, left circumflex. 2. Selective coronary angiography. INDICATION: Angina and coronary artery disease. PROCEDURE IN DETAIL: After informed consent was obtained and after a detailed explanation of risks, benefits as well as alternative therapies, the patient elected to proceed with angiogram and angioplasty. The right radial area is prepped and draped in normal sterile fashion. Right radial artery was cannulated via modified Seldinger technique with placement of 6-Welsh sheath. All catheters exchanged through the sheath. FINDINGS: The left circumflex has multiple areas of 70% to 90% stenosis throughout the mid vessel. This was addressed with a 2.75 x 22 and 3.0 x 12, both Keldron stents. Result was 0% residual stenosis. OVERALL IMPRESSION: Successful percutaneous transluminal angioplasty stent of the left circumflex going from 90% initial stenosis to 0% residual. TRANSINT:[id number] Voice Confirmation ID: [id number] DOCUMENT ID: [id number] RICHARD PEREYRA MD at 1849 CC: [id number] DICTATION DATE: 03/04/18 1125 RELIEF SALESPERSON: 03/04/18 1239 DEP CLI 03/04/18 [facility] [address] [place] [address]
--- NOTE | ~2018-03-04 | HP ---
PATIENT: JOSÉ ROBLEDO MEDICAL RECORD: [id number] ACCOUNT: [id number] LOCATION:[facility] : 42 ADMISSION DATE: 03/04/18 HISTORY AND PHYSICAL EXAMINATION ADMITTING DIAGNOSES: 1. Angina. 2. Coronary artery disease. 3. Percutaneous transluminal coronary angioplasty stent of left anterior descending and right coronary artery in the recent past. 4. Hypertension. 5. Hyperlipidemia. HISTORY OF PRESENT ILLNESS: Mr. MACHADO presents with anginal symptomatology, found to have 2-vessel disease, underwent successful PTCA stent of the LAD and RCA, is now brought back for PTCA stent of the left circumflex. REVIEW OF SYSTEMS: The patient reports easy bruising but reports no swollen glands. The patient reports no fever, no night sweats, no significant weight gain, no significant weight loss. No significant exercise tolerance. The patient reports no dry eyes, no irritation, no vision change. Patient reports no difficulty hearing and no ear pain. Patient reports no frequent nose bleeds or nose and sinus problems. Patient reports on arm pain on exertion. No shortness of breath while lying down. No history of heart murmur. Patient reports no cough, no wheezing or coughing up blood. Patient reports no abdominal pain, no vomiting. Normal appetite. No diarrhea and not vomiting blood. No nausea and no constipation. Patient reports no incontinence. No difficulty urinating. No hematuria. No increased frequency. Patient reports no muscle aches. No weakness, no arthralgias, no back pain. No swelling of the extremities. Patient reports no abnormal mole, no jaundice, no rashes. Reports no loss of consciousness. No weakness and no numbness. No seizures, dizziness, or headaches. The patient reports no depression, no sleep disturbance, feeling safe in a relationship and no alcohol abuse. Patient reports on fatigue. Reports no runny nose or sinus pressure. No itching, no hives, and no frequent sneezing. PHYSICAL EXAMINATION: GENERAL APPEARANCE: Well-nourished, well-developed, appears stated age. Level of distress, comfortable. PSYCHIATRIC: Mental status, alert, normal affect. Orientation, oriented to time, place and person. EYES: Lids and conjunctiva, noninjected. No discharge, no pallor. ENT: Lips, teeth, gums, normal dentition. Oropharynx, no cyanosis, no pallor. NECK: Carotid arteries, bilateral normal upstroke, no bruits, no thrills. JUGULAR VEINS: No jugular venous pressure or distention. CERVICAL LYMPH NODES: Nontender, nonenlarged. THYROID: Not enlarged. Nontender. No nodules. LUNGS: Respiratory effort, unlabored. CHEST: Normal curvature. No thoracic deformity. No chest wall tenderness. Percussion, resonant. Auscultation, clear. No wheezes, no rales, no rhonchi. CARDIOVASCULAR: Precordial exam, nondisplaced. No heaves or pericardial thrills. Rate and rhythm, regular. Heart sounds, normal S1, normal S2. No S3, no gallop, no rub. Systolic murmur, not heard. Diastolic murmur, not heard. EXTREMITIES: No cyanosis, no edema. Peripheral pulses, full and equal in all extremities, except as noted. No bruits appreciated. HISTORY AND PHYSICAL [id number] FRACHISEUR,JOSÉ RAY ABDOMEN: Soft, nondistended. Normal aorta. No bruit. Nontender. No masses. Liver, nontender, no hepatomegaly. Spleen, nontender, no splenomegaly. MUSCULOSKELETAL: No joint tenderness. No joint swelling. No erythema. NEUROLOGICAL: Normal gait, normal strength, normal tone. SKIN: Warm and dry. OVERALL IMPRESSION: Anginal symptomatology with significant disease of circumflex. We will proceed with percutaneous transluminal coronary angioplasty stent of the left circumflex. TRANSINT:[id number] Voice Confirmation ID: [id number] DOCUMENT ID: [id number] RICHARD PEREYRA MD at 1849 CC: [id number] DICTATION DATE: 03/04/18 1111 MEDICAL SECRETARY TEACHER: 03/04/18 1120 [facility] CLI 03/04/18 [facility] [address] [place] [id number]
--- NOTE | ~2018-03-04 | HEMODYNAMI ---
PATIENT:JOSÉ ROBLEDO MEDICAL RECORD: [id number] : 42 LOCATION:[facility] ADMISSION DATE: 03/04/18 Generatedon:03/04/201811:25 Patient name: JOSÉ ROBLEDO Patient #: [id number] SSN: : 1940 Date of study: 03/04/2018 Page: Of Hemodynamic Procedure Report Patient Data Patient Demographics Procedure consent was obtained First Name: JOSÉ Gender: Male Last Name: MEENA : 1940 Middle Initial: RAY Age: 77 year(s) Patient #: [id number] Race: Unknown Additional ID: [id number] Contact details Address: [address] State: [place] City: [place] Zip code: [address] Past Medical History Allergies: No known allergies Admission Admission Data Admission Date: 03/04/2018 Admission Time: 9:11 Procedure Procedure Types Cath Procedure PCI Procedure Coronary Stent Coronary Stent Initial Procedure Description Procedure Date Procedure Date: 03/04/2018 Procedure Start Time: 11:14 Procedure End Time: 11:24 Procedure Staff Name Function Mariano Ross MD Performing Physician Marilia Walsh RT Monitor Dexter Coleman RT Scrub Nora Worrell RN Nurse Procedure Data Cath Procedure Fluoroscopy Diagnostic fluoroscopy Total fluoroscopy Time: 2 time: 2 min min Diagnostic fluoroscopy Total fluoroscopy dose: 421 dose: 421 mGy mGy Contrast Material Contrast Material Type Amount (ml) Isovue 370 40 Entry Location Entry Primary Successful Side Size Upsize Upsize Entry Closure Martinez ccessful Closure Location (Fr) 1 (Fr) 2 (Fr) Remarks Device Remarks Radial Right 6 Fr Mechanical artery Short Compression Estimated blood loss: 10 ml Procedure Complications No complications Procedure Medications Medication Administration Route Dosage Oxygen NC 2 l/min Lidocaine 2% added to field 20 Heparin Flush Bag added to field 2 bags (1000units/500ml NS) 0.9% NaCl I.V. 100 ml/hr Versed I.V. 1 mg Fentanyl I.V. 50 mcg Heparin Bolus I.V. 4000 units Versed I.V. 1 mg Fentanyl I.V. 50 mcg Hemodynamics Rest Heart Rate: 42 (bpm) Snapshots Pre Cath Intra NCS Post Cath Vital Signs Time Heart Resp SPO2 etCO2 NIBP Rhythm Pain Sedation Rate (ipm) (%) (mmHg) (mmHg) Status Level (bpm) 10:47:30 46 28 98 0 153/68(0) NSR 0 (11) 10(A) , No pain 10:50:43 43 16 98 32.2 155/69(99) NSR 0 (11) 10(A) , No pain 10:55:07 45 17 100 30.7 147/73(90) NSR 0 (11) 10(A) , No pain 10:59:29 44 21 98 28.4 143/68(89) NSR 0 (11) 10(A) , No pain 11:03:51 45 19 98 25.4 133/62(96) NSR 0 (11) 10(A) , No pain 11:08:11 44 18 92 9.7 143/57(87) NSR 0 (11) 9(A) , No pain 11:12:31 47 19 96 22.5 128/66(81) NSR 0 (11) 9(A) , No pain 11:16:52 58 20 95 34.5 120/50(66) NSR 0 (11) 9(A) , No pain 11:21:08 55 19 96 17.2 113/54(86) NSR 0 (11) 10(A) , No pain 11:25:19 52 4 96 22.5 121/57(86) NSR 0 (11) 10(A) , No pain Medications Time Medication Route Dose Verified Delivered Reason Notes E ffectiveness by by 10:45:53 Oxygen NC 2 Nora Nora used for l/min Gm Gm automotive service director RN 10:46:03 Lidocaine 2% added 20ml Nora Nora for local to vial Gm Gm anesthetic field RN RN 10:46:15 Heparin Flush added 2 Nora Nora used for Bag to bags Gm Gm procedure (1000units/500ml field RN RN NS) 10:46:28 0.9% NaCl I.V. 100 Nora Nora used for ml/hr Gm Gm automotive service director RN 11:07:43 Versed I.V. 1 mg Nora Nora for Gm Gm sedation RN RN 11:07:51 Fentanyl I.V. 50 Nora Nora for mcg Gm Gm sedation RN RN 11:11:43 Versed I.V. 1 mg Mariano Nora for Cody Worrell sedation RN 11:11:55 Fentanyl I.V. 50 Mariano Nora for mcg Cody Worrell sedation RN 11:16:51 Heparin Bolus I.V. 4000 Mariano Nora Per verified units Cody Worrell physician with dr. JAVIER ross Procedure Log Time Note 10:15:53 Dexter Coleman RT(R) sent for patient. Start room use. 10:28:03 Time tracking: Regular hours (M-F 7:00 - 5:00) 10:28:06 Plan of Care:Hemodynamics will remain stable., Cardiac rhythm will remain stable., Comfort level will be maintained., Respiratory function will remain adequate., Patient/ family verbilizes understanding of procedure., Procedure tolerated without complication., Recovers from procedure without complications.. 10:39:52 Patient received from Pre/Post Procedure Room to [facility] 3 Alert and oriented. Tansferred to table in Supine position. 10:39:53 Warm blankets applied, and eddie hugger turned on for patient comfort. 10:39:54 Correct patient and procedure confirmed by team. 10:39:55 Signed procedure consent form obtained from patient. 10:39:56 ECG and BP/O2 sat monitors applied to patient. 10:39:57 Full Disclosure recording started 10:45:41 Vital chart was started 10:45:53 Oxygen 2 l/min NC was administered by Nora Worrell RN; used for procedure; 10:46:03 Lidocaine 2% 20ml vial added to field was administered by Nora Worrell RN; for local anesthetic; 10:46:15 Heparin Flush Bag (1000units/500ml NS) 2 bags added to field was administered by Nora Worrell RN; used for procedure; 10:46:28 0.9% NaCl 100 ml/hr I.V. was administered by Nora Worrell RN; used for procedure; 10:58:28 Use device set Radial Dx or PCI 10:58:31 Use device set TAUTH PCI 10:58:34 ACIST Syringe (05825) opened to sterile field. 10:58:34 Medline Cath Pack ([id number]) opened to sterile field. 10:58:35 Bag Decanter (2002) opened to sterile field. 10:58:37 DIAGNOSTIC WIRE .035 260cm J wire (140903) opened to sterile field. 10:58:37 ACIST Hand Control (99175) opened to sterile field. 10:58:38 ACIST Manifold (39354) opened to sterile field. 10:58:38 Tegaderm 4 x 4 (1626W) opened to sterile field. 10:58:44 SHEATH 6Fr Prelude Radial ([id number]) opened to sterile field. 10:58:45 INFLATOR Merit BasixCompak (EJ5597) opened to sterile field. 10:58:47 CHOICE PT Extra Support 182cm wire ([id number]) opened to sterile field. 10:58:57 GUIDE 6FR XB 3.5 catheter ([id number]) opened to sterile field. 10:59:08 Rhythm: sinus bradycardia 10:59:19 Baseline sample Acquired. 11:00:03 Pre-procedure instructions explained to patient. 11:00:04 Pre-op teaching completed and patient verbalized understanding. 11:00:05 Family in patients room. 11:00:06 Patient NPO since Midnight. 11:00:14 Is the patient allergic to Iodine/contrast media? No. 11:00:16 Is patient on blood thinner?Yes 11:00:18 ACC The patient was administered the following blood thiners within the last 24 hours: ACCPlavix 11:00:20 Patient diabetic? No. 11:00:23 Previous problem with sedation/anesthesia? No ? 11:00:24 Snore? Yes 11:00:25 Sleep apnea? No 11:00:26 Deviated septum? No 11:00:27 Opens mouth fully? Yes 11:00:28 Sticks out tongue? Yes 11:00:29 Airway obstruction? No ? 11:00:32 Dentures? Yes In 11:00:35 Pre procedure: left dorsailis pedis pulse 2+ Normal; easily identifiable; not easily obliterated 11:00:37 Modified Mckay's test Ulnar < 7 seconds 11:00:39 Patient pain scale 0/10 ?. 11:00:45 IV patent on arrival in left hand with 0.9% NaCl at [facility]. 11:00:47 Lab results completed and on chart. 11:00:54 Right Radial & Left Groin area was prepped with chlora-prep and draped in sterile fashion 11:00:55 Alarms reviewed by R. N. 11:00:55 Sharps counted by scrub and verified by R.N. ::22 Final Timeout: patient, procedure, and site verified with staff and physician. All members of the team are in agreement. 11:03:28 Right Radial site verified by team. 11:03:34 Physical assessment completed. ASA score P 2 - A patient with mild systemic disease as per Mariano Ross MD. 11:03:37 Sedation plan: IV Moderate Sedation Medication:Versed, Fentanyl 11:05:59 Zero performed for pressure channel P1 11:07:43 Versed 1 mg I.V. was administered by Nora Worrell RN; for sedation; 11:07:51 Fentanyl 50 mcg I.V. was administered by Nora Worrell RN; for sedation; 11:10:41 New H&P dictated by Dr Ross. Unable to get manufacturing design engineer on phone to get this in Dasher. 11:11:43 Versed 1 mg I.V. was administered by Nora Worrell RN; for sedation; 11::55 Fentanyl 50 mcg I.V. was administered by Nora Worrell RN; for sedation; 11:14:35 Procedure started. 11:14:39 Local anesthetic to right radial artery with Lidocaine 2% by Mariano Ross MD.INITIAL ACCESS ONLY 11:16:08 A 6 Fr Short sheath was inserted into the Right Radial artery 11:16:15 6 Fr XB 3.5 guide catheter was inserted over the wire 11:16:47 CHOICE PT ES wire advanced. 11:16:51 Heparin Bolus 4000 units I.V. was administered by Nora Worrell RN; Per physician; verified with dr. ross 11:18:32 Place stent Inflation Number: 1 A ANGEL RX 2.75 x 22 stent ([id number]) was prepped and advanced across the Mid CX. The stent was deployed at 17 INGRID for 0:10 (min:sec). 11:19:12 Stent catheter was removed intact over wire. 11:19:57 Place stent Inflation Number: 2 A ANGEL RX 3.0 x 12 stent ([id number]) was prepped and advanced across the Mid CX. The stent was deployed at 13 INGRID for 0:04 (min:sec). 11:20:17 Stent catheter was removed intact over wire. 11:20:18 Wire removed. 11:20:18 Guide catheter removed. 11:20:37 Sheath removed intact; hemostasis achieved with Mechanical Compression to the Right Radial artery. 11:20:38 Procedure ended.(Physican Out) 11:20:59 Fluoroscopy time 02.00 minutes. 11:21:15 Fluoroscopy dose: 421 mGy 11::15 Flurop Dose total: 421 11::19 Contrast amount:Isovue 370 40ml. 11:21:20 Sharps counted by scrub and verified by R.N. 11:21:22 TR band inflated with 12cc of air. 11:21:23 Insertion/operative site no bleeding no hematoma. 11:21:28 Post right radial artery:stable, clean and dry 11:21:29 Post Procedure Pulses reassessed and unchanged 11:21:32 Post-procedure physical assessment completed. ASA score P 2 - A patient with mild systemic disease as per Mariano Ross MD. 11:21:40 Post procedure rhythm: unchanged. 11:21:43 Estimated blood loss: 10 ml 11:21:44 Post procedure instruction explained to patient.Patient verbalizes understanding. 11:21:45 Patient needs reinforcement of post procedure teaching. 11::57 Procedure and supply charges have been captured, reviewed, submitted and are correct. 11:22:02 Procedure Complication : No complications 11:22:06 See physician's report for complete and final results. 11:22:15 TR BAND Standard ([id number]) opened to sterile field. 11:24:37 Vital chart was stopped 11:24:40 Report given to Pre/Post Procedure Room. 11:24:42 Patient transfered to Pre/Post Procedure Room with Stretcher. 11:24:48 Procedure ended. 11:24:48 Full Disclosure recording stopped 11:24:52 End room use (Document Last) Intervention Summary Intervention Notes Time ActionType Lesion and Equipment Used Action# Pressure Duration Attributes 11:18:32 Place stent Mid CX ANGEL RX 2.75 x 1 17 00:10 22 stent ([id number]) 11:19:57 Place stent Mid CX ANGEL RX 3.0 x 2 13 00:04 12 stent ([id number]) Device Usage Item Name Manufacture Quantity Catalog Number Hospital Part Current Minimal Lot# / Charge Number Stock Stock Serial# Code ACIST Syringe Acist 1 86049 826434 238842 660287 20 (69097) [employer] Medline Cath Cardinal 1 [id number] 180631 40713 962870 5 Pack Health ([id number]) Bag Decanter Microtek 1 2001S 612883 04507 114281 5 (2001S) Medical Inc. DIAGNOSTIC WIRE St Evangelista 1 452380 425270 020324 317942 30 .035 260cm J wire (001969) ACIST Hand Acist 1 36623 983382 324672 255921 5 Control (60330) [employer] ACIST Manifold Acist 1 76825 138615 113361 361712 5 (06852) [employer] Inc Tegaderm 4 x 4 3M 1 1626W 630952 143706 715003 5 (1626W) SHEATH 6Fr Merit 1 [id number] 678574 776446 540412 5 Prelude Radial Medical ([id number]) INFLATOR Merit Merit 1 [id number] 734380 768936 418345 [facility] ([id number][facility] CHOICE PT Extra Williamson 1 [id number] 847527 908807 650958 5 Support 182cm Scientific wire ([id number]) GUIDE 6FR XB Cardinal 1 [id number] 947353 150484 429976 2 3.5 catheter Health ([id number]) ANGEL RX 2.75 x Medtronic 1 [id number] 667256 6142799 233664 5 [id number] 22 stent ([id number]) ANGEL RX 3.0 x Medtronic 1 [id number] 513505 9996360 586431 5 [id number] 12 stent ([id number]) TR BAND Terumo 1 [id number] 282009 134962 246148 40 Standard ([id number]) Signature Audit [place] Stage Time Signature Unsigned Intra-Procedure 03/04/2018 Marilia 11:25:37 AM Counts RT(R) Signatures Monitor : Marilia Signature : Counts RT Date : Time : [address] [place] [address]
[~2018-03-04 09:11] MED LIST: ASPIRIN81 MG PO; FLOMAX0.4 MG PO; PENTASA500 MG PO; PLAVIX75 MG PO; PRAVACHOL40 MG PO
[2018-03-04 09:52] VITALS: BP 165/84; Ht 165.1 cm; Wt 58.2 kg
[2018-03-04 10:11] LABS: BASOPHILS 0.4 % (0-2); EOSINOPHILS 1.1 % (0-7); HEMATOCRIT 39.6 % (42.0-54.0); HEMOGLOBIN 12.9 g/dL (13.5-17.5); IMMATURE GRANULOCYTES 0.1 % (0-5); LYMPHOCYTES 22.8 % (15-50); MCH 27.1 pg (26.0-34.0); MCHC 32.6 g/dL (31.0-37.0); MCV 83.2 fL (80.0-100.0); MEAN PLATELET VOLUME 8.5 fL (7.4-10.4); MONOCYTES 6.9 % (2-11); NEUTROPHILS 68.7 % (40-80); PLATELET COUNT 284 10x3/uL (130-400); RBC 4.76 10x6/uL (4.20-6.10); RDW 13.6 % (11.5-14.5)
[2018-03-04 10:49] LABS: ANION GAP 9.5 mmol/L (8-16); CALCIUM 9.1 mg/dL (8.5-10.1); CARBON DIOXIDE 27.4 mmol/L (21.0-32.0); CREATININE - SERUM 1.1 mg/dL (0.6-1.3); POTASSIUM - SERUM 3.9 mmol/L (3.5-5.1)
== END 2018-03-04 16:15 | disposition home or self-care (01) ==
LOC: D.CATH 09:11
PROVIDERS: Internal Medicine Interventional Cardiology
DX: I25.119 Atherosclerotic heart disease of native coronary artery with unspecified angina pectoris (principal); Z95.5 Presence of coronary angioplasty implant and graft; I10 Essential (primary) hypertension; E78.5 Hyperlipidemia, unspecified; Z01.812 Encounter for preprocedural laboratory examination